=== PATIENT | female | born 1985 | race Caucasian/White ===

== ENCOUNTER → 2021-04-11 | Outpatient (CLI) | payer BC | END | disposition home or self-care (01) | LOC: SHCH 13:07 | PROVIDERS: ATTEND Internal Medicine Cardiovascular Disease | DX: R06.00 Dyspnea, unspecified (principal); R00.2 Palpitations | CPT/HCPCS: 93306; 93356 ==

== ENCOUNTER 2021-08-01 08:16 | Day surgery (SDC) | payer BC ==
[2021-07-30 14:37] LABS: BASOPHILS % (AUTO) 0.4 % (0.0-5.0); EOSINOPHILS % (AUTO) 1.7 % (0.0-8.0); HEMATOCRIT 37.7 % (36-48); LYMPHOCYTES % (AUTO) 21.8 % (21.0-51.0); MEAN CORPUSCULAR HEMOGLOBIN 29.2 pg (27.0-33.0); MEAN CORPUSCULAR HGB CONC 32.4 g/dL (32.0-36.0); MEAN CORPUSCULAR VOLUME 90.2 fL (79-99); MONOCYTES % (AUTO) 5.4 % (3.0-13.0); NEUTROPHILS % (AUTO) 70.4 % (40.0-77.0); PLATELET COUNT (AUTO) 295 K/uL (130-400); RED BLOOD CELL COUNT(AUTO) 4.18 MIL/uL (4.00-5.50); RED CELL DISTRIBUTION WIDTH 13.5 % (11.0-15.5)
[2021-07-30 14:45] LABS: CREATININE 0.6 mg/dL (0.5-1.5); POTASSIUM 3.8 mmol/L (3.5-5.1)
[2021-07-30 14:48] LABS: INR 1.02 (0.85-1.15); PROTHROMBIN TIME 11.1 SEC (9.6-11.6)
[2021-07-31 09:43] VITALS: BP 134/77
[2021-08-01] VITALS (14 sets, daily range): BP systolic 118–144; BP diastolic 63–97
[~2021-08-01] VITALS: Ht 157.5 cm; Wt 76.7 kg
[~2021-08-01 08:16] MED LIST: ASCO100T12 PO; BIOT10TA PO; LACTATED RINGERS 1000ML 1,000 ML IV ONE; LEVO25CA4 PO; LOSA25TA41 PO; VITAMIN B12 PO; VITAMIN D PO
[2021-08-01] MEDS: CEFAZOLIN SODIUM 1 GM VIAL ONE ×2 (08:43→11:01)
[2021-08-01] MEDS ORDERED: BUPIVACAINE/PF 0.5% 30ML VIAL ONE (09:03)
[2021-08-01] MEDS ORDERED: SUCCINYLCHOLINE 200MG/10ML SYR ONE (09:19)
[2021-08-01] MEDS ORDERED: ONDANSETRON 4MG INJ ONE (09:19)
[2021-08-01] MEDS ORDERED: LIDOCAINE PF 100MG/5ML (2%) SYRINGE 5ML ONE (09:19)
[2021-08-01] MEDS ORDERED: PROPOFOL 10 MG/ML 20ML VIAL IV ONE (09:19)
[2021-08-01] MEDS ORDERED: GLYCOPYRROLATE 1 MG/5 ML SYRINGE ONE (09:19)
[2021-08-01] MEDS ORDERED: DEXAMETHASONE SOD PHOSPHATE 10MG/ML 1ML VIAL ONE (09:19)
[2021-08-01] MEDS ORDERED: NEOSTIGMINE 5MG/5ML SYR IV ONE (09:20)
[2021-08-01] MEDS ORDERED: MEPERIDINE-PF 25 MG/ML SYG ONE (09:20)
[2021-08-01] MEDS ORDERED: FENTANYL CITRATE PF 50 MCG/1 ML 2ML VIAL ONE ×2 (09:20→11:19)
[2021-08-01] MEDS ORDERED: ROCURONIUM 10MG/1ML SYR 10 MG/ML ML ONE ×2 (09:20→11:12)
[2021-08-01] MEDS ORDERED: MIDAZOLAM HCL 1 MG/ML 2ML VIAL ONE (09:20)
[2021-08-01] MEDS ORDERED: SCOPOLAMINE HYDROBROMIDE 1 EACH ADH..PATCH TD ONE (09:23)
[2021-08-01] MEDS ORDERED: EPHEDRINE SULFATE 50 MG/ML AMPULE ONE (10:44)
== END 2021-08-01 13:31 | disposition home or self-care (01) ==
LOC: DAH 08:16
PROVIDERS: ATTEND Surgery
DX: K81.1 Chronic cholecystitis (principal); Z20.822 Contact with and (suspected) exposure to COVID-19; I10 Essential (primary) hypertension; E03.9 Hypothyroidism, unspecified; Z98.890 Other specified postprocedural states; Z79.01 Long term (current) use of anticoagulants; Z79.899 Other long term (current) drug therapy
CPT/HCPCS: 47562; S2900; 36415; 80048; 84703; 85025; 85610; 85730; 87635; C9803; J0330; J0690; J1100; J2001; J2175; J2250; J2405; J2704; J2710; J3010; J3490; J7030; J7120